=== PATIENT | female | born 1970 | race Caucasian/White ===

== ENCOUNTER 2021-06-20 12:46 | Outpatient (CLI) | payer OTHER, SELFPAY ==
--- NOTE | 2021-06-20 12:53 | ECHOD_ITS ---
Reason For Study: HTN Procedure This was a 2D Doppler, Color Flow transthoracic echocardiogram. No Definity use due to single Kidney. The study was technically difficult. Exam performed in department. Left Ventricle Normal LV size. Left ventricular systolic function is normal. The estimated ejection fraction is 65 %. Transmitral doppler flow suggestive of impaired relaxation of left ventricle. No regional wall motion abnormalities noted. Right Ventricle Normal RV size. Normal systolic function. Atria Normal left atrium. Normal right atrium. No doppler evidence for ASD. Mitral Valve There is no mitral annular calcification. Normal mitral valve. Trivial mitral valve insufficiency. Tricuspid Valve Normal tricuspid valve. Mild tricuspid valve insufficiency. Right ventricular systolic pressure estimated to be 22 mmHg. Aortic Valve Trisinus/trileaflet aortic valve. Normal aortic valve. Pulmonic Valve The pulmonic valve is not well visualized. Great Vessels Normal sized aortic root. Pericardium/Pleural No pericardial effusion. MMode/2D Measurements & Calculations LVIDd: 4.5 cm IVSd: 0.90 cm Ao root diam: 3.4 cm LVIDs: 2.3 cm LVPWd: 1.2 cm LA dimension: 4.0 cm RVDd: 3.1 cm FS: 48.7 % LAV(MOD-bp): 47.4 ml LA A4 area: 18.7 cm2 RA A4 area: 16.2 cm2 LAV(MOD-bp) Indexed: 21.4 ml/m2 LAV(MOD-sp2): 39.6 ml LAV(MOD-sp4): 49.2 ml Time Measurements MV dec time: 0.24 sec Doppler Measurements & Calculations MV E max case: 60.9 cm/sec Lat Peak E' Case: 8.3 cm/sec Med Peak E' Case: 6.9 cm/sec MV A max case: 67.5 cm/sec E/E' lat: 7.4 E/E' med: 8.8 MV E/A: 0.90 MV V2 max: 78.1 cm/sec MV P1/2t max case: 63.8 cm/sec Ao V2 max: 133.7 cm/sec MV max P.4 mmHg MV P1/2t: 59.0 msec Ao max P.2 mmHg MV V2 mean: 44.7 cm/sec MV dec slope: 316.8 cm/sec2 MV mean P.93 mmHg MVA(P1/2t): 3.7 cm2 MV V2 VTI: 16.3 cm PA V2 max: 87.6 cm/sec TR max case: 217.8 cm/sec TR max P.0 mmHg ECHO/Echo Complete Interpretation Summary The study was technically difficult. Left ventricular systolic function is normal. The estimated ejection fraction is 65 %. Trivial mitral valve insufficiency. Mild tricuspid valve insufficiency. Right ventricular systolic pressure estimated to be 22 mmHg. Transmitral doppler flow suggestive of impaired relaxation of left ventricle Ordering Physician: Ziyad Robins Referring Physician: Ziyad Robins Performed By: Beau Orozco RCS
== END 2021-06-20 23:59 | disposition short-term general hospital (02) ==
PROVIDERS: Referring Provider Internal Medicine Cardiovascular Disease; Visit Provider Internal Medicine Cardiovascular Disease
DX: I10 Essential (primary) hypertension (principal)
CPT/HCPCS: 93306

== ENCOUNTER → 2023-01-18 | Outpatient (CLI) | payer OTHER, SELFPAY ==
[2023-01-18 11:02] LABS: Anion Gap 5 (5-15); BUN 15 mg/dL (7-18); BUN/Creat Ratio 16.5 RATIO (10-20); Chloride 106 mmol/L (98-107); Creatinine, Serum 0.91 mg/dL (0.55-1.02); EST Glomerular Filtration Rate 69 mL/min (>60); Est Glom Filt Rate - Afr Amer 84 mL/min (>60); Glucose 103 mg/dL (74-106); Potassium 3.8 mmol/L (3.5-5.1); Sodium Level 138 mmol/L (136-145)
== END | disposition home or self-care (01) ==
PROVIDERS: Referring Provider Physician Assistant Medical; Visit Provider Physician Assistant Medical
DX: S37.002A Unspecified injury of left kidney, initial encounter (principal); S37.10XA Unspecified injury of ureter, initial encounter; Z90.5 Acquired absence of kidney; X58.XXXA Exposure to other specified factors, initial encounter
CPT/HCPCS: 36415; 80048

== ENCOUNTER → 2023-03-01 | Outpatient (CLI) | payer OTHER, SELFPAY ==
[2023-03-06 07:39] LABS: Aldosterone, Serum 4.6 ng/dL (0.0-30.0); Renin, Plasma 0.752 ng/mL/hr (0.167-5.380)
== END | disposition home or self-care (01) ==
PROVIDERS: PCP Family Medicine; Referring Provider Physician Assistant Medical; Visit Provider Physician Assistant Medical
DX: Z00.00 Encounter for general adult medical examination without abnormal findings (principal)
CPT/HCPCS: 36415; 82088; 84244; 93788

== ENCOUNTER → 2023-03-18 | Outpatient (CLI) | payer OTHER, SELFPAY ==
--- NOTE | 2023-03-18 08:00 | RDU_ITS ---
Reason For Study: Essential primary HTN Right Renal Artery Left Renal Dimensions Right renal artery ostium Pt has a hx of L nephrectomy. 128.6/23.3 RSV/EDV. Right renal artery proximal 111.0/29.8 PSV/EDV. Right renal artery mid 159.3/47.4 PSV/EDV. Right renal artery distal 97.9/38.6 PSV/EDV. Right RAR 2.5. Right Renal Parenchyma Upper Pole Medula 35.8/12.7 PSV/EDV. Right upper pole medulla EDR .36 . Right upper pole medulla R.I. .64 . Upper Hebert Cortx 23.7/10.5 PSV/EDV. Right upper pole cortex EDR .44 . Right upper pole cortex R.I. .56 . Right lower Pole medulla 29.2/9.4 PSV/EDV . Right lower pole medulla EDR .32 . Right lower pole medulla R.I. .68 . Lower Pole Cortex 33.6/14.9 PSV/EDV. Right lower pole cortex EDR .44 . Right lower pole cortex R.I. .56 . Right Renal Hilar Right Hilar avg 83.7/25.4 PSV/EDV. Right hilar acceleration time 70 m/sec. Right Renal Dimensions Right kidney size 12.0 cm . Right cortical dimension 1.46 cm . Aorta Proximal abdominal aorta 1.25 x 1.2 cm . Proximal abdominal aorta peak systolic velocity is 63.9 cm/sec . Distal abdominal aorta 1.09 x 1.03 cm . Distal abdominal aorta peak systolic velocity is 88.6 cm/sec . Normal RRV. VL/Renal Artery Duplex Ultrasound Interpretation Summary Right renal artery patent with normal velocities and no evidence of stenosis. Right renal vein patent Right kidney normal in size. Prior left nephrectomy Ordering Physician: Kelly Campo Performed By: Del Craft RVT
== END | disposition home or self-care (01) ==
LOC: CVS 08:00
PROVIDERS: PCP Family Medicine; Referring Provider Physician Assistant Medical; Visit Provider Physician Assistant Medical
DX: I10 Essential (primary) hypertension (principal); Z90.5 Acquired absence of kidney
CPT/HCPCS: 93975

== ENCOUNTER → 2023-03-29 | Outpatient (CLI) | payer OTHER, SELFPAY | END | disposition home or self-care (01) | LOC: SL 21:51 | PROVIDERS: PCP Family Medicine; Referring Provider Physician Assistant Medical; Visit Provider Physician Assistant Medical | DX: G47.33 Obstructive sleep apnea (adult) (pediatric) (principal) | CPT/HCPCS: 95810 ==

== ENCOUNTER → 2025-01-15 | Outpatient (CLI) | payer OTHER, SELFPAY ==
--- NOTE | 2025-01-15 17:22 | STRESSREP_ITS ---
Stress Test Report Exercise myocardial perfusion stress test. 54-year-old lady with a history of chest pain. Stress protocol: Resting EKG demonstrates normal sinus rhythm with a rate of 57 bpm resting blood pressure is 128/78 mmHg. The patient exercised according to the regular Sigifredo protocol for a total duration of 8 minutes attaining a maximum heart rate of 141 bpm which was 84% of maximum predicted heart rate; the maximum workload was 10.1 metabolic equivalents. At rest there were no ST or T wave changes noted to suggest ischemia and at peak exercise upsloping ST changes only were noted which did not meet the criteria for ischemia. No clinical angina was noted the test was terminated due to the target heart rate being achieved/fatigue. The peak b lood pressure was 154/70 mmHg. Rate-pressure product was 19,300. Myocardial perfusion protocol. 12.2 mCi of technetium 99m sestamibi was injected at rest. The patient exercised according to regular Sigifredo protocol for total duration of 8 minutes and at peak exercise 36.7 mCi of technetium 99m sestamibi was injected stress images were obtained stress and rest images were reconstructed in comparing the short axis vertical long and horizontal long axis. Gated images were also obtained. Perfusion SPECT analysis: Review of the stress images demonstrate normal uptake of tracer noted in all areas of the myocardium. The resting images similarly demonstrate normal uptake of tracer noted in all areas of the myocardium. No areas of reversibility are noted to suggest ischemia no previous infarct was noted. Gated SPECT analysis: The gated ejection fraction is 74%. Conclusion: Normal exercise myocardial perfusion stress test at a high workload.
== END | disposition home or self-care (01) ==
LOC: CVS 07:34
PROVIDERS: PCP Family Medicine; Referring Provider Nurse Practitioner Family; Visit Provider Nurse Practitioner Family
DX: R07.9 Chest pain, unspecified (principal); I10 Essential (primary) hypertension
CPT/HCPCS: 78452; 93017; A9500; A4216